=== PATIENT | male | born 1930 | race Caucasian/White ===

== ENCOUNTER 2017-01-19 07:03 | Day surgery (SDC) | payer MEDICARE, OTHER ==
[2017-01-18 18:12] LABS: BASOPHILS 0.4 %; BASOPHILS ABSOLUTE 0.03 10/3/uL (0.0-0.16); EOSINOPHILS 4.2 %; EOSINOPHILS ABSOLUTE 0.28 10/3/uL (0.0-0.53); HEMATOCRIT 46.1 % (40.0-51.0); HEMOGLOBIN 15.1 g/dL (13.6-17.8); IMMATURE GRANULOCYTES 0.3 %; IMMATURE GRANULOCYTES ABSOLUTE 0.02 10/3/uL (0.0-0.11); LYMPHOCYTES ABSOLUTE 1.75 10/3/uL (0.67-4.30); MANUAL DIFF NO %; MEAN CORPUS HGB CONC 32.8 g/dL (32.0-36.0); MEAN CORPUSCULAR HEMOGLOB 30.6 pg (26.0-34.0); MEAN CORPUSCULAR VOLUME 93.3 fL (80-100); MEAN PLATELET VOLUME 11.8 fL (9.2-13.0); MONOCYTES 6.5 %; MONOCYTES ABSOLUTE 0.44 10/3/uL (0.21-1.20); NEUTROPHILS 62.6 %; NEUTROPHILS ABSOLUTE 4.21 10/3/uL (2.02-8.40); PLATELET COUNT 237 10/3/uL (150-400); RBC DISTRIBUTION WIDTH 13.8 % (12.0-16.0); RED CELL COUNT 4.94 10/6/uL (4.7-6.1); WHITE BLOOD CELLS 6.7 10/3/uL (4.5-10.5)
[2017-01-18 18:14] LABS: BUN (BLOOD UREA NITROGEN) 29 MG/DL (6-23); CALCIUM, SERUM 9.7 MG/DL (8.5-10.4); CHLORIDE, SERUM 103 MMOL/L (96-112); CO2 (CARBON DIOXIDE) 29 MMOL/L (24-34); CREATININE 2.34 MG/DL (0.70-1.30); GFR AFRICAN AMERICAN 28 ML/MIN (>=60); GFR NON AFRICAN AMERICAN 24 ML/MIN (>=60); GLUCOSE, SERUM 116 MG/DL (60-99); POTASSIUM, SERUM 4.7 MMOL/L (3.5-5.3); SODIUM, SERUM 140 MMOL/L (135-148)
[2017-01-18 18:15] LABS: PARTIAL THROMBO TIME 33.7 SEC (22.5-37.2); PROTIME (NOT ORD) 13.1 SEC (12.0-14.5)
--- NOTE | ~2017-01-19 | OP ---
Record Of Operation [facility] [address] [place]. [address] NAME: HAMMAD PARMAR : [birth year] STATUS : [place] [facility] [place] PAT#: [id number] AGE: 86 ADM/REG DATE : 01/19/17 MR#: [id number] REPORT SERV DATE: 01/19/17 DICTATED BY: NYASIA ENAMORADO DATE: 01/19/17 REPORT STATUS : Draft TRANSCRIBED BY: MODL DATE: 01/19/17 DATE OF PROCEDURE: 01/19/2017 PREOPERATIVE DIAGNOSES: 1. Prostate cancer. 2. Chronic left ureteral obstruction with stent. 3. Urethral stricture. POSTOPERATIVE DIAGNOSES: 1. Prostate cancer. 2. Chronic left ureteral obstruction with stent. 3. Urethral stricture. PROCEDURE PERFORMED: Cystoscopy, urethral dilation, internal urethrotomy, left retrograde pyelogram, left ureteral stent exchange. SURGEON: Nyasia Enamorado M.D. ANESTHESIA: General. ESTIMATED BLOOD LOSS: Less than 15 mL. INDICATIONS: This is an 86-year-old white male with prostate cancer, on Lupron. He is in chronic urinary retention managed with CIC. He has known stricture disease. He also has a chronic left ureteral obstruction, managed with a left indwelling stent. We are planning routine stent exchange. Risks of infection, bleeding, failure, need for further surgery have been discussed. PROCEDURE IN DETAIL: The patient was taken to the operating room and underwent a general anesthetic. He was placed in the lithotomy position on the table, and his external genitalia were sterilely prepped and draped. I attempted to insert the 22-Panamanian cystoscope sheath with 30-degree lens, but could not do it due to obstruction in the distal urethra. I then tried a 20-Panamanian and could not insert that either. I used male sounds to dilate the urethra to 22-Panamanian with some degree of difficulty. We used an Roslyn urethrotome to incise the distal urethra up to 24-Panamanian using a cold knife. This allowed easier introduction of the 20-Panamanian cystoscope sheath with 30-degree lens. There was a stricture in the distal urethra. The more proximal urethra actually looked more normal. The prostate was basically opened following previous TURP other than some apical adenoma. The bladder was inspected and had some debris in it. The distal end of the stent was observed to exit the left orifice. The bladder had patchy irritative changes. The right orifice was not well seen. There were significant trabeculation. The stent was grasped with grasping forceps and pulled out of the urethral meatus. I was able to place an 0.038 guidewire through the stent up into the kidney and over this advanced a Worth catheter. A retrograde pyelogram was obtained which allowed visualization of at least a portion of the kidney with what looked like a mildly dilated upper pole calyx and a dilated ureter. The guidewire was replaced back up into the kidney and a 6-Panamanian x 28 cm [place] stent was advanced over the guidewire Record Of [place] [id number] [place]. [address] NAME: HAMMAD PARMAR : [birth year] STATUS : REG SD PAT#: [id number] AGE: 86 ADM/REG DATE : 01/19/17 MR#: [id number] REPORT SERV DATE: 01/19/17 DICTATED BY: NYASIA ENAMORADO DATE: 01/19/17 REPORT STATUS : Draft TRANSCRIBED BY: INEZ DATE: 01/19/17 such that the proximal end of the stent was observed to coil in the collecting system of the kidney under fluoroscopic guidance and the distal end of the stent was visually observed to coil in the bladder following removal of the guidewire. The endoscopic apparatus was removed from the bladder and an 18 coude catheter was placed to gravity drainage. The patient was taken to recovery in stable condition. RENZO/INEZ Nyasia Enamorado M.D. / [id number] CC: Kofi Mar Lee Daniel D.O.
[~2017-01-19 07:03] MED LIST: ALLERGY REL1 OP; ASAB PO; BEN25 PO; CALTRA600D PO; CEFT2 PO; DSS PO; ENDOCET1 TAB PO; FISH-EPA1000 MG PO; FLOMAX4 PO; HCTZ25B PO; HYDROCHLOROT25 MG PO; LORTAB 5 PO; MULTIPLE VIT PO; NORV10 PO; NORV25 PO; OXYCOD PO; PCET PO; PRAVACHOL40 MG PO; PRILO PO; PROZAC PO; PYR200 PO; STOOL SOFTEN240 MG PO; STOOL SOFTNER OTC PO; SYN88 PO; T PO; VICODINTAB PO; VITAMIN B-121000 MC1 SL; ZANTAC150 MG PO; [UNRECOGNIZED DRUG - REMARK] PO
== END 2017-01-19 13:29 | disposition home or self-care (01) ==
LOC: SDC 07:03
PROVIDERS: Urology
PROC: 0T778DZ Dilation of Left Ureter with Intraluminal Device, Via Natural or Artificial Opening Endoscopic (ICD-10-PCS; 2017-01-19)
PROC: BT1FZZZ Fluoroscopy of Left Kidney, Ureter and Bladder (ICD-10-PCS; 2017-01-19)
PROC: 0T7D8ZZ Dilation of Urethra, Via Natural or Artificial Opening Endoscopic (ICD-10-PCS; principal; 2017-01-19 08:45)
DX: Z46.6 Encounter for fitting and adjustment of urinary device (principal); C61 Malignant neoplasm of prostate; N35.9 Urethral stricture, unspecified; N13.5 Crossing vessel and stricture of ureter without hydronephrosis; I10 Essential (primary) hypertension; E03.9 Hypothyroidism, unspecified
CPT/HCPCS: 36415; 74420; 80048; 85025; 85610; 85730; 88300; 93005; C1758; C2617; J2250; J3010; Q9967